=== PATIENT | male | born 1950 ===

== ENCOUNTER 2016-07-20 18:06 | Emergency (ER) | payer MEDICARE, OTHER ==
--- NOTE | 2016-07-20 18:24 | C.PDOC ---
History Of Present Illness 66-year-old male, presents to the emergency department via EMS, with witnessed seizure-like activity just prior to arrival. Patients blood sugar was found to be 65 and he was given an amp of D50 by EMS. Patient is alert but not able to provide any Hx upon arrival except state his name. Time Seen by Provider: 07/20/16 18:06 Chief Complaint (Nursing): Altered Mental Status History Per: Patient History/Exam Limitations: None Past Medical History Reviewed: Historical Data, Nursing Documentation, Vital Signs Vital Signs: Last Vital Signs Temp 97.7 F 07/20/16 20:18 Pulse 81 07/20/16 20:18 Resp 20 07/20/16 20:18 BP 128/65 07/20/16 20:18 Pulse Ox 98 07/20/16 20:18 - Medical History PMH: Anemia, Gall Bladder Disease, HTN Denies: Colonic Polyps, Fractures, Hypercholesterolemia, Chronic Kidney Disease, TIA Comment Only: Arthritis (HANDS) Surgical History: Coronary Stent (2) Denies: Endoscopy - [facility] Procedures RESECTION OF RECTUM, OPEN APPROACH (02/03/15) RESECTION OF SIGMOID COLON, OPEN APPROACH (02/03/15) Family History: States: Other Other Family History: nc - Social History Hx Alcohol Use: No Review Of Systems Except As Marked, All Systems Reviewed And Found Negative. Constitutional: Negative for: Fever, Chills Cardiovascular: Negative for: Chest Pain, Palpitations Respiratory: Negative for: Shortness of Breath Gastrointestinal: Negative for: Nausea, Vomiting Musculoskeletal: Negative for: Back Pain Skin: Negative for: Rash Neurological: Negative for: Weakness, Numbness, Headache, Dizziness Psych: Negative for: Suicidal ideation Physical Exam - Physical Exam Appears: Non-toxic, No Acute Distress Skin: Warm, Dry, No Rash Head: Atraumatic, Normacephalic Eye(s): bilateral: Normal Inspection, PERRL Nose: Normal Oral Mucosa: Moist Neck: Normal ROM Cardiovascular: Rhythm Regular Respiratory: Normal Breath Sounds, No Accessory Muscle Use, No Rales, No Rhonchi , No Wheezing Gastrointestinal/Abdominal: Soft, No Tenderness Extremity: No Swelling Neurological/Psych: Other (disoriented, able to state name and follow commands, no focal deficits) ED Course And Treatment - Laboratory Results Result Diagrams: 07/20/16 18:18 07/20/16 18:18 - CT Scan/US CT Head w/o contrast Other Rad Studies (CT/US): Interpreted By Me, Read By Radiologist CT/US Interpretation: PROCEDURE: CT HEAD WITHOUT CONTRAST. HISTORY: ams. COMPARISON: None available. TECHNIQUE: Axial computed tomography images were obtained through the head/brain without intravenous contrast. Radiation dose: Total exam DLP = 735.51 mGy-cm. This CT exam was performed using one or more of the following dose reduction techniques: Automated exposure control, adjustment of the mA and/or kV according to patient size, and/or use of iterative reconstruction technique. FINDINGS: HEMORRHAGE: No intracranial hemorrhage. BRAIN: No mass effect or edema. Intracranial atherosclerotic calcifications. Bilateral basal ganglia calcifications. Scattered periventricular and subcortical white matter hypodensities, which are nonspecific, but often seen with chronic microvascular ischemic disease. Please note that MRI with diffusion imaging is more sensitive in the detection of acute ischemic event. VENTRICLES: No hydrocephalus. CALVARIUM: Unremarkable. PARANASAL SINUSES: Unremarkable as visualized. No significant inflammatory changes. MASTOID AIR CELLS: Unremarkable as visualized. No inflammatory changes. OTHER FINDINGS: None. IMPRESSION: Nonspecific white matter changes. Medical Decision Making Medical Decision Makin pt now a&o x3, says he took insulin prior to leaving the house this evening but did not eat anything. he was at a [employer] and says he began to feel his blood sugar was low and so he started to eat something, however shortly after friend says he had seizure-like activity so ems was called. he appears well, no complaints, no distress, is comfortable w dc. Disposition - Disposition Disposition: HOME/ ROUTINE Disposition Time: 19:57 Condition: IMPROVED Additional Instructions: Please follow up with your doctor. Return to the ER for any worsening symptoms or for any other concerns. Instructions: Diabetic Hypoglycemia (ED) Forms: General Discharge Instructions - Clinical Impression Clinical Impression: Hypoglycemia due to insulin - Scribe Statement The provider has reviewed the documentation as recorded by the Tristian Giles All medical record entries made by the Ricardoibquincy were at my direction and personally dictated by me. I have reviewed the chart and agree that the record accurately reflects my personal performance of the history, physical exam, medical decision making, and the department course for this patient. I have also personally directed, reviewed, and agree with the discharge instructions and disposition.
[2016-07-20 18:27] LABS: BASO # 0.1 K/uL (0.0-0.2); BASO % 1.3 % (0.0-2.0); EOS # 0.4 K/uL (0.0-0.7); EOS % 5.6 % (0.0-4.0); HEMATOCRIT 33.8 % (35.0-51.0); LYMPH # 1.8 K/uL (1.0-4.3); LYMPH % 25.5 % (20.0-40.0); MEAN CELL VOLUME 87.4 fL (80.0-94.0); MEAN CORPUSCULAR HEMOGLOBIN 27.7 pg (27.0-31.0); MEAN CORPUSCULAR HGB CONC 31.7 g/dL (33.0-37.0); MEAN PLATELET VOLUME 9.1 fL (7.2-11.7); MONO # 0.5 K/uL (0.0-0.8); MONO % 7.2 % (0.0-10.0); NRBC % 0.1 % (0.0-2.0); RED CELL DISTRIBUTION WIDTH 19.6 % (11.5-14.5); WHITE BLOOD COUNT 6.9 K/uL (4.8-10.8)
[2016-07-20 18:32] LABS: CHLORIDE 108 mmol/L (98-107); POTASSIUM 3.7 mmol/L (3.6-5.2); SODIUM 139 mmol/L (132-148)
[2016-07-20 18:34] LABS: BILIRUBIN,TOTAL 0.6 mg/dL (0.2-1.3); GFR AFRICAN-AMERICAN 49
[2016-07-20 18:35] LABS: ALB/GLOB RATIO 1.3 (1.0-2.1); ALKALINE PHOSPHATASE 61 U/L (38-126); ALT/SGPT 18 U/L (21-72); AST/SGOT 22 U/L (17-59); BLOOD UREA NITROGEN 28 mg/dL (9-20); CARBON DIOXIDE 14 mmol/L (22-30); GLUCOSE,RANDOM 158 mg/dL (75-110); TOTAL PROTEIN 6.6 g/dL (6.3-8.3)
[2016-07-20 18:36] LABS: CALCIUM 7.9 mg/dl (8.6-10.4)
[2016-07-20 18:40] LABS: INR 0.9
[2016-07-20 18:41] LABS: VENOUS BLOOD GAS BASE EXCESS -19.6 mmol/L (0.0-2.0); VENOUS BLOOD GAS PCO2 51 mmHg (40-60); VENOUS BLOOD PH 6.98 (7.32-7.43)
[2016-07-20] MEDS ORDERED: Sodium Chloride 0.9% 1,000 ML IV ONE (18:43)
--- NOTE | 2016-07-20 18:49 | CT ---
PROCEDURE: CT HEAD WITHOUT CONTRAST. HISTORY: ams COMPARISON: None available. TECHNIQUE: Axial computed tomography images were obtained through the head/brain without intravenous contrast. Radiation dose: Total exam DLP = 735.51 mGy-cm. This CT exam was performed using one or more of the following dose reduction techniques: Automated exposure control, adjustment of the mA and/or kV according to patient size, and/or use of iterative reconstruction technique. FINDINGS: HEMORRHAGE: No intracranial hemorrhage. BRAIN: No mass effect or edema. Intracranial atherosclerotic calcifications. Bilateral basal ganglia calcifications. Scattered periventricular and subcortical white matter hypodensities, which are nonspecific, but often seen with chronic microvascular ischemic disease. Please note that MRI with diffusion imaging is more sensitive in the detection of acute ischemic event. VENTRICLES: No hydrocephalus. CALVARIUM: Unremarkable. PARANASAL SINUSES: Unremarkable as visualized. No significant inflammatory changes. MASTOID AIR CELLS: Unremarkable as visualized. No inflammatory changes. OTHER FINDINGS: None. IMPRESSION: Nonspecific white matter changes.
[2016-07-20 18:55] LABS: VENOUS BLOOD GAS BASE EXCESS -4.6 mmol/L (0.0-2.0); VENOUS BLOOD GAS PCO2 46 mmHg (40-60); VENOUS BLOOD PH 7.29 (7.32-7.43)
[2016-07-20 20:03] LABS: ABG ALLEN TEST POS; DRAW SITE RBA
[2016-07-20 20:18] VITALS: BP 128/65; PULSE 81; RESP 20; TEMP 97.7; O2SAT 98
--- NOTE | 2016-07-21 07:45 | RAD ---
HISTORY: Altered mental status COMPARISON: No prior. FINDINGS: LUNGS: Mild venous congestion. PLEURA: No significant pleural effusion identified, no pneumothorax apparent. CARDIOVASCULAR: Normal. OSSEOUS STRUCTURES: Calcific tendinopathy of the left proximal humerus. VISUALIZED UPPER ABDOMEN: Normal. OTHER FINDINGS: None. IMPRESSION: Mild venous congestion.
--- NOTE | 2016-07-25 18:14 | CARD ---
APPROVED REPORT EKG Measurement Heart [id number] VT [id number] [id number] <Conclusion> Sinus rhythm with 1st degree AV block Nonspecific ST abnormality Abnormal ECG
== END 2016-07-20 20:31 | disposition home or self-care (01) ==
LOC: C.ER 18:06
DX: E11.649 Type 2 diabetes mellitus with hypoglycemia without coma (principal); Z79.4 Long term (current) use of insulin

== ENCOUNTER 2016-07-26 16:01 | Emergency (ER) | payer MEDICARE, OTHER ==
[2016-07-26 18:13] LABS: BASO # 0.1 K/uL (0.0-0.2); BASO % 2.2 % (0.0-2.0); EOS # 0.4 K/uL (0.0-0.7); EOS % 6.3 % (0.0-4.0); HEMATOCRIT 35.2 % (35.0-51.0); LYMPH # 1.3 K/uL (1.0-4.3); LYMPH % 21.5 % (20.0-40.0); MEAN CELL VOLUME 86.9 fL (80.0-94.0); MEAN CORPUSCULAR HEMOGLOBIN 28.4 pg (27.0-31.0); MEAN CORPUSCULAR HGB CONC 32.7 g/dL (33.0-37.0); MEAN PLATELET VOLUME 9.1 fL (7.2-11.7); MONO # 0.5 K/uL (0.0-0.8); MONO % 9.4 % (0.0-10.0); RED CELL DISTRIBUTION WIDTH 19.5 % (11.5-14.5); WHITE BLOOD COUNT 5.8 K/uL (4.8-10.8)
[2016-07-26 18:18] LABS: CHLORIDE 104 mmol/L (98-107); POTASSIUM 4.6 mmol/L (3.6-5.2); SODIUM 138 mmol/L (132-148)
[2016-07-26 18:20] LABS: ALB/GLOB RATIO 1.2 (1.0-2.1); ALKALINE PHOSPHATASE 73 U/L (38-126); AST/SGOT 23 U/L (17-59); BILIRUBIN,TOTAL 0.6 mg/dL (0.2-1.3); BLOOD UREA NITROGEN 36 mg/dL (9-20); CARBON DIOXIDE 24 mmol/L (22-30); GFR AFRICAN-AMERICAN 46; TOTAL PROTEIN 6.6 g/dL (6.3-8.3)
[2016-07-26 18:21] LABS: ALT/SGPT 22 U/L (21-72); CALCIUM 8.5 mg/dl (8.6-10.4); GLUCOSE,RANDOM 145 mg/dL (75-110)
[2016-07-26 18:34] LABS: RBC URINE < 1 /hpf (0-3); URINE BILIRUBIN NEGATIVE (NEGATIVE); URINE BLOOD NEGATIVE (NEGATIVE); URINE COLOR Yellow (YELLOW); URINE GLUCOSE (UA) 1+ mg/dL (Normal); URINE KETONE NEGATIVE (NEGATIVE); URINE LEUKOCYTE ESTERASE NEG Leu/uL (Negative); URINE PROTEIN 2+ mg/dL (NEGATIVE); URINE UROBILINOGEN NORMAL mg/dL (0.2-1.0)
--- NOTE | 2016-07-26 18:44 | C.PDOC ---
History Of Present Illness 66-year-old male, presents to the emergency department, sent by PMD, with complaints of intermittent light headedness. Patient states he has been receiving blood transfusions every for the past four weeks. Two days ago, patient was given a B12 injection in Hematology office, after which he has been experiencing intermittent light headedness. Patient was following with PMD in office today, who sent him to the ED for further evaluation. Denies nausea/ vomiting, diarrhea, fevers, chills, shortness of breath, chest pain, back pain, or any other associated symptoms. No other complaints at this time. 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 Chief Complaint (Nursing): Dizziness/Lightheaded History Per: Patient History/Exam Limitations: no limitations Onset/Duration Of Symptoms: Days, Intermittent Episodes Current Symptoms Are (Timing): Better Associated Symptoms Preceding Syncopal Episode: No Predromal Symptoms (Sudden Onset) Past Medical History Reviewed: Historical Data, Nursing Documentation, Vital Signs Vital Signs: Last Vital Signs Temp 98.3 F 07/26/16 16:15 Pulse 79 07/26/16 16:15 Resp 20 07/26/16 16:15 BP 122/76 07/26/16 16:15 Pulse Ox 100 07/26/16 19:03 - Medical History PMH: Anemia, Gall Bladder Disease, HTN Denies: Colonic Polyps, Fractures, Hypercholesterolemia, Chronic Kidney Disease, TIA Comment Only: Arthritis (HANDS) Surgical History: Coronary Stent (2) Denies: Endoscopy - [facility] Procedures RESECTION OF RECTUM, OPEN APPROACH (02/03/15) RESECTION OF SIGMOID COLON, OPEN APPROACH (02/03/15) Family History: States: No Known Family Hx - Social History Hx Alcohol Use: No Hx Substance Use: No - Immunization History Hx Tetanus Toxoid Vaccination: No Hx Influenza Vaccination: No Hx Pneumococcal Vaccination: No Review Of Systems Except As Marked, All Systems Reviewed And Found Negative. Constitutional: Negative for: Fever, Chills Cardiovascular: Positive for: Light Headedness. Negative for: Chest Pain, Palpitations Respiratory: Negative for: Shortness of Breath Gastrointestinal: Negative for: Nausea, Vomiting Musculoskeletal: Negative for: Back Pain Skin: Negative for: Rash Neurological: Negative for: Weakness, Numbness Physical Exam - Physical Exam Appears: Non-toxic, No Acute Distress Skin: Warm, Dry, No Rash Head: Atraumatic, Normacephalic Eye(s): bilateral: Normal Inspection Nose: Normal Oral Mucosa: Moist Lips: Normal Appearing Neck: Normal ROM Chest: Symmetrical Cardiovascular: Rhythm Regular Respiratory: Normal Breath Sounds, No Accessory Muscle Use Extremity: Normal ROM Neurological/Psych: Oriented x3 ED Course And Treatment - Laboratory Results Result Diagrams: 07/26/16 18:03 07/26/16 18:03 ECG: Interpreted By Me ECG Rhythm: Sinus Bradycardia ECG Interpretation: No Acute Changes Rate From EC O2 Sat by Pulse Oximetry: 100 Progress Note: Case was d/w who requested patient to be d/c home and f/ u with him tomorrow. Disposition - Disposition Referrals: Cheryl Brown MD [Staff Provider] - Disposition: HOME/ ROUTINE Disposition Time: 18:59 Condition: STABLE Additional Instructions: Follow up with tomorrow. Return to ED if feel worse. Instructions: Lightheadedness (ED) - Clinical Impression Clinical Impression: Lightheaded - Scribe Statement The provider has reviewed the documentation as recorded by the Scribquincy Giles All medical record entries made by the Scribe were at my direction and personally dictated by me. I have reviewed the chart and agree that the record accurately reflects my personal performance of the history, physical exam, medical decision making, and the department course for this patient. I have also personally directed, reviewed, and agree with the discharge instructions and disposition.
[2016-07-26 19:07] VITALS: RESP 18
[2016-07-26 19:13] VITALS: BP 150/72; PULSE 58; TEMP 97; O2SAT 100
--- NOTE | 2016-07-28 08:46 | CARD ---
APPROVED REPORT EKG Measurement Heart [id number] CO 212P55 [id number] <Conclusion> Sinus bradycardia with 1st degree AV block Otherwise normal ECG
== END 2016-07-26 19:12 | disposition home or self-care (01) ==
LOC: C.ER 16:01
DX: R42 Dizziness and giddiness (principal)

== ENCOUNTER 2018-05-25 14:36 | Emergency (ER) | payer MEDICARE, OTHER ==
--- NOTE | 2018-05-25 16:02 | C.PDOC ---
History Of Present Illness 67 year old male presents to ED with a complaint of a foreign body stuck in his left ear. Patient has a PMHx of hearing loss and currently uses a hearing aid. He states that the rubber piece from his hearing aid got stuck in his left ear earlier today. Patient describes the pain as a 4/10 in severity. Patient denies the use of any pain medication. He denies ringing in his ear, dizziness, and drainage from the ear. Time Seen by Provider: 05/25/18 14:53 Chief Complaint (Nursing): Foreign Body History Per: Patient History/Exam Limitations: None Onset/Duration Of Symptoms: Hrs Current Symptoms Are (Timing): Still Present Quality (Ear): Foreign Body (rubber piece from hearing aid). denies: Discharge Pain Scale Rating Of: 4 Past Medical History Reviewed: Historical Data, Nursing Documentation, Vital Signs Vital Signs: Last Vital Signs Temp 98.4 F 05/25/18 14:49 Pulse 73 05/25/18 14:49 Resp 20 05/25/18 14:49 BP 190/81 H 05/25/18 14:49 Pulse Ox 95 05/25/18 14:49 - Medical History PMH: Anemia, Gall Bladder Disease, HTN Denies: Colonic Polyps, Fractures, Hypercholesterolemia, Chronic Kidney Disease, TIA Comment Only: Arthritis (HANDS) Surgical History: Coronary Stent (2) Denies: Endoscopy - [facility] Procedures RESECTION OF RECTUM, OPEN APPROACH (02/03/15) RESECTION OF SIGMOID COLON, OPEN APPROACH (02/03/15) Family History: States: Unknown Family Hx - Social History Hx Alcohol Use: No Hx Substance Use: No - Immunization History Hx Tetanus Toxoid Vaccination: No Hx Influenza Vaccination: No Hx Pneumococcal Vaccination: No Review Of Systems Constitutional: Negative for: Fever, Chills, Weakness ENT: Positive for: Other (foreign body to the left ear, no ringing in the ear). Negative for: Ear Pain, Ear Discharge, Nose Discharge, Throat Pain Cardiovascular: Negative for: Palpitations Respiratory: Negative for: Shortness of Breath Gastrointestinal: Negative for: Nausea, Vomiting Neurological: Negative for: Weakness, Numbness, Headache, Dizziness Physical Exam - Physical Exam Appears: Well, Non-toxic, No Acute Distress Skin: Normal Color, Warm, Dry Head: Atraumatic, Normacephalic Eye(s): bilateral: Normal Inspection, PERRL Ear(s): Left: Other (rubber foreign body), Right: Normal Nose: No Discharge Oral Mucosa: Moist Tongue: Normal Appearing Lips: Normal Appearing Throat: No Erythema, No Exudate Neck: Normal ROM, Supple Neurological/Psych: Oriented x3, Normal Speech, Normal Cognition, Normal Sensation ED Course And Treatment O2 Sat by Pulse Oximetry: 95 (in RA) Medical Decision Making Medical Decision Making: Impression: 67 year old male with complaint of rubber foreign body to the left ear Plan:foreign body removed from ear with alligator forceps Re-evaluation. Patient feels better. Discussed results and plan with patient who expresses understanding. All questions answered and there is agreement with the plan to discharge home with instructions. Patient stable for discharge. Return if symptoms persist or worsen. 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 (Sara Bustamante) - Scribe Statement The provider has reviewed the documentation as recorded by the Scribe (Sara Bustamante) All medical record entries made by the Scribe were at my direction and personally dictated by me. I have reviewed the chart and agree that the record accurately reflects my personal performance of the history, physical exam, medical decision making, and the department course for this patient. I have also personally directed, reviewed, and agree with the discharge instructions and disposition.
[2018-05-25 16:04] VITALS: BP 163/83; PULSE 58; RESP 18; TEMP 98.1
[2018-05-25 16:08] VITALS: O2SAT 95
== END 2018-05-25 16:07 | disposition home or self-care (01) ==
LOC: C.ER 14:36
DX: T16.2XXA Foreign body in left ear, initial encounter (principal); X58.XXXA Exposure to other specified factors, initial encounter; H92.02 Otalgia, left ear

== ENCOUNTER 2018-07-07 10:33 | Emergency (ER) | payer MEDICARE, OTHER ==
[2018-07-07 10:46] VITALS: BMI 26.6
[2018-07-07 10:50] VITALS: BP 150/68; PULSE 61; RESP 18; TEMP 97.5; O2SAT 96
--- NOTE | 2018-07-07 13:58 | C.PDOC ---
History Of Present Illness 68 year old male presents to ED with complaint of left ear pain since last night. Patient states that the bud of his hearing aid got stuck in his ear when he was removing it last night. He states that he didn't realize it was stuck in his ear until this morning. Patient denies fever or headache. Time Seen by Provider: 07/07/18 10:57 Chief Complaint (Nursing): ENT Problem History Per: Patient History/Exam Limitations: None Onset/Duration Of Symptoms: Days (1) Current Symptoms Are (Timing): Still Present Quality (Ear): Foreign Body (ear bud) Past Medical History Reviewed: Historical Data, Nursing Documentation, Vital Signs Vital Signs: Last Vital Signs Temp 97.5 F L 07/07/18 10:46 Pulse 61 07/07/18 10:46 Resp 18 07/07/18 10:46 BP 150/68 07/07/18 10:46 Pulse Ox 96 07/07/18 10:46 Primary Care Provider: Cheryl Brown - Medical History PMH: Anemia, Gall Bladder Disease, HTN Denies: Colonic Polyps, Fractures, Hypercholesterolemia, Chronic Kidney Disease, TIA Comment Only: Arthritis (HANDS) Surgical History: Coronary Stent (2) Denies: Endoscopy - [facility] Procedures RESECTION OF RECTUM, OPEN APPROACH (02/03/15) RESECTION OF SIGMOID COLON, OPEN APPROACH (02/03/15) Family History: States: Unknown Family Hx - Social History Hx Alcohol Use: No Hx Substance Use: No - Immunization History Hx Tetanus Toxoid Vaccination: No Hx Influenza Vaccination: No Hx Pneumococcal Vaccination: No Review Of Systems Constitutional: Negative for: Fever, Chills, Weakness ENT: Positive for: Ear Pain (left ear, foreign body present) Neurological: Negative for: Headache Physical Exam - Physical Exam Appears: Well, Non-toxic, No Acute Distress Skin: Normal Color, Warm, Dry Head: Atraumatic, Normacephalic Eye(s): bilateral: Normal Inspection Ear(s): Left: Other (foreign body present, no external erythema or tenderness) Nose: Normal Oral Mucosa: Moist Throat: Normal, No Erythema, No Exudate Neck: Normal ROM, Supple Chest: Symmetrical, No Deformity Respiratory: No Accessory Muscle Use Neurological/Psych: Oriented x3, Normal Speech, Normal Cognition ED Course And Treatment O2 Sat by Pulse Oximetry: 96 (in RA) Pulse Ox Interpretation: Normal Medical Decision Making Medical Decision Making: Impression: 68 year old male with foreign body to the left ear. Plan: Foreign body removed using forceps. Patient tolerated well. Ear canal normal, no erythema, and TM intact. 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 (Sara Bustamante) - Scribe Statement The provider has reviewed the documentation as recorded by the Scribe (Sara Bustamante) All medical record entries made by the Scribe were at my direction and personally dictated by me. I have reviewed the chart and agree that the record accurately reflects my personal performance of the history, physical exam, medical decision making, and the department course for this patient. I have also personally directed, reviewed, and agree with the discharge instructions and disposition.
== END 2018-07-07 11:35 | disposition home or self-care (01) ==
LOC: C.ER 10:33
DX: T16.2XXA Foreign body in left ear, initial encounter (principal); X58.XXXA Exposure to other specified factors, initial encounter